=== PATIENT | male | born 1960 | race Caucasian/White ===

== ENCOUNTER 2017-08-30 15:32 | Inpatient (IN) | payer OTHER ==
[2017-08-30 16:27] VITALS: BMI 15.6
--- NOTE | 2017-08-30 17:54 | HP ---
COWS - Scale Resting Pulse: 0= [place] 80 or Below Sweatin=Flushed/Facial Moisture Restless Observation: 3= Extraneous Movement Pupil Size: 0= Normal to Room Light Bone or Joint Aches: 4=Acute Joint/Muscle Pain Runny Nose/ Eye Tearin= Runny Nose/Eyes GI Upset > 30mins: 3= Vomiting/Diarrhea (Vomitted x 3, diarrhea x 2) Tremor Observation: 2= Slight Tremor Visible Yawning Observation: 1= 1-2x During Session Anxiety or Irritability: 2=Irritable/Anxious Goose Flesh Skin: 0=Smooth Skin COWS Score: 19 CIWA Score - CIWA Score Nausea/Vomitin (Vomitting x 3, diarrhea x 2) Muscle Tremors: 4-Moderate,w/Arms Extend Anxiety: 4-Mod. Anxious/Guarded Agitation: 2 Paroxysmal Sweats: 1-Minimal Palms Moist Orientation: 0-Oriented Tacttile Disturbances: 1-Very Mild Itch/Numbness Auditory Disturbances: 0-None Visual Disturbances: 0-None Headache: 0-None Present CIWA-Ar Total Score: 18 Admission ROS S - HPI Chief Complaint: Alcohol and heroin withdrawal Allergies/Adverse Reactions: Allergies Allergy/AdvReac Type Severity Reaction Status Date / Time penicillin G Allergy Severe Swelling Verified 08/30/17 18:26 History of Present Illness: 56 years old male with a long history of alcohol and heroin dependency is admitted for detox. Patient reports previous detox. Reports 2 years of sobriety. Pt states " I want to clean up because I am getting old and for my 4 grandchildren" Exam Limitations: No Limitations - Ebola screening Have you traveled outside of the country in the last 21 days: No Have you had contact with anyone from an Ebola affected area: No Have you been sick,other than usual withdrawal symptoms: No Do you have a fever: No - Review of Systems Constitutional: Chills, Loss of Appetite, Malaise, Night Sweats, Changes in sleep, Weakness EENT: reports: Other (Use glasses for reading) Respiratory: reports: SOB with Exertion Cardiac: reports: No Symptoms Reported GI: reports: Diarrhea, Poor Appetite, Poor Fluid Intake, Vomiting, Abdominal cramping (in the mornings) : reports: No Symptoms Reported Musculoskeletal: reports: Joint Pain, Muscle Pain, Muscle Weakness, Joint Stiffness Integumentary: reports: Dryness, Flushing Neuro: reports: Headache, Tingling, Tremors Endocrine: reports: No Symptoms Reported, Unexplained Weight Loss (H/O AIDS) Hematology: reports: No Symptoms Reported Psychiatric: reports: Orientated x3, Agitated, Depressed (H/O Schizophrenia), other Other Systems: Reviewed and Negative Patient History - Patient Medical History Hx Anemia: No Hx Asthma: Yes Hx Chronic Obstructive Pulmonary Disease (COPD): No Hx Cancer: No Hx Cardiac Disorders: No Hx Congestive Heart Failure: No Hx Hypertension: Yes Hx Hypercholesterolemia: No Hx Pacemaker: No HX Cerebrovascular Accident: No Hx Seizures: No Hx Dementia: No Hx Diabetes: No Hx Gastrointestinal Disorders: No Hx Liver Disease: No Hx Genitourinary Disorders: No Hx Sexually Transmitted Disorders: No Hx Renal Disease (ESRD): No Hx Thyroid Disease: No Hx Human Immunodeficiency Virus (HIV): Yes ( ) Hx Hepatitis C: Yes Hx Depression: Yes Hx Suicide Attempt: Yes (1988) Hx Bipolar Disorder: No Hx Schizophrenia: Yes - Patient Surgical History Past Surgical History: No Hx Neurologic Surgery: No Hx Cataract Extraction: No Hx Cardiac Surgery: No Hx Lung Surgery: No Hx Breast Surgery: No Hx Breast Biopsy: No Hx Abdominal Surgery: No Hx Appendectomy: No Hx Cholecystectomy: No Hx Genitourinary Surgery: No Hx Section: No Hx Orthopedic Surgery: No Anesthesia Reaction: No - PPD History Previous Implant?: No (H/O TB) Date: 07/27/13 PPD to be Administered?: No - Reproductive History Patient is a Female of Child Bearing Age (11 -55 yrs old): No (MALE) - Smoking Cessation Smoking history: Current every day smoker Have you smoked in the past 12 months: Yes Aproximately how many cigarettes per day: 6 Cigars Per Day: 6 Hx Chewing Tobacco Use: No Initiated information on smoking cessation: Yes 'Breaking Loose' booklet given: 08/30/17 - Substance & Tx. History Hx Alcohol Use: Yes (BEER, WHISKY) Hx Substance Use: Yes Substance Use Type: Alcohol, Heroin Hx Substance Use Treatment: Yes ([facility]) Family Disease History - Family Disease History Family Disease History: CA: Father (PROSTATE CA, ), Other: Mother ( ALZHEIMER'S DISEASE, ), Sister (MS, ) Admission Physical Exam BHS - Vital Signs Vital Signs: Vital Signs - 24 hr 08/30/17 16:24 Temperature 97.7 F Pulse Rate 70 Respiratory 18 Rate Blood Pressure 126/62 - Physical General Appearance: Yes: Within Normal Limits, Mild Distress, Cachetic, Anxious HEENTM: Yes: Normal ENT Inspection, Normal Voice, RADHA Respiratory: Yes: Lungs Clear, Normal Breath Sounds, No Respiratory Distress Neck: Yes: Supple Breast: Yes: Breast Exam Deferred Cardiology: Yes: Regular Rhythm, Regular Rate, S1, S2 Abdominal: Yes: Normal Bowel Sounds, Flat Genitourinary: Yes: Within Normal Limits Back: Yes: Other (TATTO TO BACK) Musculoskeletal: Yes: Joint Stiffness, Muscle weakness Extremities: Yes: Tremors, Other (BILATERAL HAND TATOO) Neurological: Yes: Fully Oriented, Alert, Normal Response Integumentary: Yes: Dry, Pale, Track [place] (BILATERAL UPPER AND LOWER EXTREMITIES) Lymphatic: Yes: Within Normal Limits - Diagnostic (1) Acquired immune deficiency syndrome (AIDS) Current Visit: Yes Status: Chronic (2) Asthma Current Visit: Yes Status: Chronic (3) Essential hypertension Current Visit: Yes Status: Chronic (4) Hepatitis C Current Visit: Yes Status: Chronic Qualifiers: Viral hepatitis chronicity: chronic Hepatic coma status: without hepatic coma Qualified Code(s): B18.2 - Chronic viral hepatitis C; B18.2 - Chronic viral hepatitis C; B18.2 - Chronic viral hepatitis C; B18.2 - Chronic viral hepatitis C (5) Nicotine dependence Current Visit: Yes Status: Acute Qualifiers: Nicotine product type: cigarettes Substance use status: uncomplicated Qualified Code(s): F17.210 - Nicotine dependence, cigarettes, uncomplicated; F17.210 - Nicotine dependence, cigarettes, uncomplicated (6) Alcohol dependence with uncomplicated withdrawal Current Visit: Yes Status: Acute (7) Opioid dependence with withdrawal Current Visit: Yes Status: Acute Cleared for Admission S - Detox or Rehab [facility] Level of Care: Medically Managed Detox Regimen/Protocol: Methadone/Librium S Breath Alcohol Content Breath Alcohol Content: 0 Urine Drug Screen - Results Drug Screen Negative: No Urine Drug Screen Results: OPI-Opiates, BZO-Benzodiazepines
[2017-08-30] MEDS ORDERED: MAGNESIUM HYDROX 2400MG/30ML ORAL SUSPENSION 30 ML CUP PO PRN (18:30)
[2017-08-30] MEDS ORDERED: MAG HYDROX/AL HYDROX/SIMETH 30 ML UNIT-DOSE CUP PO PRN (18:30)
[2017-08-30] MEDS ORDERED: diphenhydrAMINE HCL 50 MG CAPSULE PO PRN (18:30)
[2017-08-30] MEDS ORDERED: P-EPHED 60MG/TRIPROLIDI 2.5MG TABLET PO PRN (18:30)
[2017-08-30] MEDS ORDERED: guaiFENesin/D-METHORPHAN HB 10 ML UNIT-DOSE CUPS PO PRN (18:30)
[2017-08-30] MEDS ORDERED: METHADONE HCL 10 MG TABLET (FOR DETOX USE ONLY) PO ONE ×2 (18:30→23:00)
[2017-08-30] MEDS ORDERED: MENTHOL/PHENOL 1 EACH UD MM PRN (18:30)
[2017-08-30] MEDS ORDERED: MAGNESIUM CITRATE 300 ML BOTTLE PO PRN (18:30)
[2017-08-30] MEDS ORDERED: LOPERAMIDE HCL 2 MG CAPSULE PO PRN (18:30)
[2017-08-30] MEDS ORDERED: chlordiazePOXIDE HCL 25 MG CAPSULE PO PRN (18:30)
[2017-08-30] MEDS ORDERED: ACETAMINOPHEN 325 MG TABLET (FP) PO PRN (18:30)
[2017-08-30] MEDS ORDERED: ALBUTEROL SO4 18 GM HFA INHALER IH PRN (18:35)
[2017-08-30] MEDS ORDERED: THIAMINE HCL 100 MG TABLET (FP) PO SCH (22:00)
[2017-08-30] MEDS: chlordiazePOXIDE HCL 25 MG CAPSULE PO SCH (22:06)
[2017-08-30] MEDS: NICOTINE POLACRILEX 2 MG GUM BUC PRN (22:09)
[2017-08-30 23:05] LABS: URINE APPEARANCE SLCLOUDY; URINE BILIRUBIN NEGATIVE (NEGATIVE); URINE BLOOD NEGATIVE (NEGATIVE); URINE COLOR YELLOW; URINE GLUCOSE (UA) NEGATIVE (NEGATIVE); URINE KETONE NEGATIVE (NEGATIVE); URINE NITRITE NEGATIVE (NEGATIVE); URINE PROTEIN NEGATIVE (NEGATIVE); URINE UROBILINOGEN NEGATIVE mg/dL (0.2-1.0)
[2017-08-31] MEDS: chlordiazePOXIDE HCL 25 MG CAPSULE PO SCH ×2 (05:01→10:09)
[2017-08-31] MEDS: NICOTINE POLACRILEX 2 MG GUM BUC PRN (08:52)
[2017-08-31 09:05] VITALS: BP 111/65; PULSE 83; TEMP 95.5
[2017-08-31 09:41] LABS: URINE LEUK ESTERASE Negative (NEGATIVE)
[2017-08-31] MEDS ORDERED: PRENATAL VITAMINS W/ FOLIC ACID TABLET (FP) PO SCH (10:00)
[2017-08-31] MEDS ORDERED: NICOTINE 14 MG/24 HOURS TOPICAL PATCH TD SCH (10:00)
[2017-08-31] MEDS ORDERED: ASPIRIN 81 MG CHEWABLE TABLETS PO SCH (10:00)
[2017-08-31] MEDS ORDERED: METHADONE HCL 10 MG TABLET (FOR DETOX USE ONLY) PO SCH (10:00)
[2017-08-31] MEDS ORDERED: PATIENT'S OWN MEDICATION (NON-FORMULARY) (Efavirenz/Emtricitab/Tenofovir 1 TAB) PO SCH (10:00)
[2017-08-31 10:14] LABS: MCH 35.2 pg (25.7-33.7); MCHC 33.3 g/dl (32.0-35.9); MEAN CELL VOLUME 105.8 fl (80-96); MEAN PLT VOLUME 8.3 fl (7.5-11.1); PLATELET COUNT 178 K/MM3 (134-434); WHITE BLOOD COUNT 4.8 K/mm3 (4.0-10.0)
[2017-08-31 10:44] LABS: ALBUMIN 3.2 g/dl (3.4-5.0); ALK PHOS 85 U/L (45-117); ANION GAP 9 (8-16); BILIRUBIN,TOTAL 0.5 mg/dL (0.2-1.0); CALCIUM 8.3 mg/dL (8.5-10.1); CO2 29 mmol/L (21-32); CREATININE 1.1 mg/dL (0.7-1.3); GLUCOSE,RANDOM 73 mg/dL (74-106); SGOT/AST 17 U/L (15-37); SGPT/ALT 20 U/L (12-78); TOT PROT 7.2 g/dl (6.4-8.2)
--- NOTE | 2017-08-31 11:54 | EKG ---
Test Reason : Blood Pressure : / mmHG Vent. Rate : 062 BPM Atrial Rate : 062 BPM P-R Int : 180 ms QRS Dur : 092 ms QT Int : 432 ms P-R-T Axes : 035 013 052 degrees QTc Int : 438 ms NORMAL SINUS RHYTHM INCOMPLETE RIGHT BUNDLE BRANCH BLOCK BORDERLINE ECG NO PREVIOUS ECGS AVAILABLE Confirmed by DEJA GORDON, KATERINA ([id number]) on 08/31/2017 11:54:35 AM Referred By: Confirmed By:KATERINA SHORT MD
--- NOTE | 2017-08-31 13:23 | DS ---
[facility] Detox Discharge Summary Admission Date: 08/30/17 Discharge Date: 08/31/17 - History Present History: Alcohol Dependence, Opioid Dependence Additional Comments: DESPITE ENCOURAGEMENT FROM STAFF TO REMAIN ON DETOX UNIT FOR DETOX REGIMEN, PATIENT DOES NOT WISH TO STAY TO COMPLETE DETOX REGIMEN. PATIENT ADVISED TO GO IMMEDIATELY TO NEAREST ER SHOULD ANY INTOLERABLE DETOX SYMPTOMS DEVELOP AT ANY TIME. PATIENT LEFT DETOX UNIT IN STABLE MEDICAL CONDITION. Pertinent Past History: Asthma, Nicotine Dependence, HTN, Hep C, HIV / AIDS, Depression, Schizophrenia. - Physical Exam Results Vital Signs: Vital Signs Temperature 95.5 F L 08/31/17 09:05 Pulse Rate 83 08/31/17 09:05 Respiratory Rate 18 08/31/17 09:05 Blood Pressure 111/65 08/31/17 09:05 O2 Sat by Pulse Oximetry (%) Pertinent Admission Physical Exam Findings: WITHDRAWAL SYMPTOMS. Laboratory Tests 08/30/17 08/31/17 08/31/17 22:00 07:00 07:00 WBC 4.8 D RBC 3.32 L Hgb 11.7 Hct 35.2 L MCV 105.8 H MCH 35.2 H MCHC 33.3 RDW 14.0 Plt Count 178 MPV 8.3 Sodium 139 Potassium 3.7 Chloride 101 Carbon Dioxide 29 D Anion Gap 9 BUN 20 H D Creatinine 1.1 Creat Clearance w eGFR > 60 Random Glucose 73 L D Calcium 8.3 L Total Bilirubin 0.5 D AST 17 D ALT 20 D Alkaline Phosphatase 85 D Total Protein 7.2 Albumin 3.2 L Urine Color Yellow Urine Appearance Slcloudy Urine pH 6.0 Ur Specific [place] 1.020 Urine Protein Negative Urine Glucose (UA) Negative Urine Ketones Negative Urine Blood Negative Urine Nitrite Negative Urine Bilirubin Negative Urine Urobilinogen Negative Ur Leukocyte Esterase Negative RPR Titer 08/31/17 07:00 WBC RBC Hgb Hct MCV MCH MCHC RDW Plt Count MPV Sodium Potassium Chloride Carbon Dioxide Anion Gap BUN Creatinine Creat Clearance w eGFR Random Glucose Calcium Total Bilirubin AST ALT Alkaline Phosphatase Total Protein Albumin Urine Color Urine Appearance Urine pH Ur Specific [place] Urine Protein Urine Glucose (UA) Urine Ketones Urine Blood Urine Nitrite Urine Bilirubin Urine Urobilinogen Ur Leukocyte Esterase RPR Titer Nonreactive LABS NOTED. - Treatment Hospital Course: Detoxed Safely - Medication Discharge Medications: Ambulatory Orders Albuterol Sulfate Inhaler - [Ventolin Hfa *Inhaler*] 2 inh IH PRN PRN 09/11/13 Aspirin 81 mg PO DAILY 07/25/13 Quetiapine Fumarate [Seroquel -] 50 mg PO HS #30 tablet 07/26/13 Efavirenz/Emtricitab/Tenofovir [Atripla Tablet -] 1 tab PO DAILY 10/02/13 Quetiapine Fumarate [Seroquel -] 50 mg PO HS #30 tablet 05/20/16 - Diagnosis (1) Alcohol dependence with uncomplicated withdrawal Status: Acute (2) Nicotine dependence Status: Chronic Qualifiers: Nicotine product type: cigarettes Substance use status: uncomplicated Qualified Code(s): F17.210 - Nicotine dependence, cigarettes, uncomplicated; F17.210 - Nicotine dependence, cigarettes, uncomplicated (3) Opioid dependence with withdrawal Status: Acute (4) Acquired immune deficiency syndrome (AIDS) Status: Chronic (5) Asthma Status: Chronic (6) Essential hypertension Status: Chronic (7) Hepatitis C Status: Chronic Qualifiers: Viral hepatitis chronicity: chronic Hepatic coma status: without hepatic coma Qualified Code(s): B18.2 - Chronic viral hepatitis C; B18.2 - Chronic viral hepatitis C; B18.2 - Chronic viral hepatitis C; B18.2 - Chronic viral hepatitis C - AMA Did Patient Leave Against Medical Advice: Yes (PATIENT DID NOT WISH TO STAY TO COMPLETE DETOX REGIMEN.)
[2017-08-31] MEDS ORDERED: chlordiazePOXIDE HCL 25 MG CAPSULE PO SCH (23:00)
[2017-09-01] MEDS ORDERED: METHADONE HCL 5 MG TABLET (FOR DETOX USE ONLY) PO SCH (10:00)
[2017-09-01] MEDS ORDERED: chlordiazePOXIDE 5 MG CAPSULE PO SCH (23:00)
[2017-09-02] MEDS ORDERED: chlordiazePOXIDE HCL 10 MG CAPSULE PO SCH (23:00)
[2017-09-03] MEDS ORDERED: METHADONE HCL 10 MG TABLET (FOR DETOX USE ONLY) PO SCH (10:00)
[2017-09-04] MEDS ORDERED: METHADONE HCL 5 MG TABLET (FOR DETOX USE ONLY) PO SCH (06:00)
== END 2017-08-31 11:08 | disposition left against medical advice (07) | DRG 894 ==
LOC: YASAS 15:32 → Y3N 19:27
PROVIDERS: ADMIT Internal Medicine; ATTEND Internal Medicine
PROC: HZ2ZZZZ Detoxification Services for Substance Abuse Treatment (ICD-10-PCS; principal; 2017-08-30)
DX: F11.23 Opioid dependence with withdrawal (principal); F10.230 Alcohol dependence with withdrawal, uncomplicated; F17.210 Nicotine dependence, cigarettes, uncomplicated; F20.9 Schizophrenia, unspecified; F32.9 Major depressive disorder, single episode, unspecified; I10 Essential (primary) hypertension; B18.2 Chronic viral hepatitis C; J45.909 Unspecified asthma, uncomplicated; Z91.5 Personal history of self-harm
CPT/HCPCS: 36415; 80053; 81003; 85027; 86593; 93005; 93010

== ENCOUNTER 2017-10-26 11:44 | Inpatient (IN) | payer OTHER ==
[2017-10-26 13:21] VITALS: BMI 18.6
--- NOTE | 2017-10-26 16:44 | HP ---
COWS - Scale Resting Pulse: 1= [place] 81-100 Sweatin= Chills/Flushing Restless Observation: 3= Extraneous Movement Pupil Size: 0= Normal to Room Light Bone or Joint Aches: 2= Severe Diffuse Aches Runny Nose/ Eye Tearin= Runny Nose/Eyes GI Upset > 30mins: 3= Vomiting/Diarrhea Tremor Observation: 2= Slight Tremor Visible Yawning Observation: 0= None Anxiety or Irritability: 2=Irritable/Anxious Goose Flesh Skin: 0=Smooth Skin COWS Score: 16 CIWA Score - CIWA Score Nausea/Vomitin Muscle Tremors: 4-Moderate,w/Arms Extend Anxiety: 4-Mod. Anxious/Guarded Agitation: 4-Moderately Restless Paroxysmal Sweats: 1-Minimal Palms Moist Orientation: 0-Oriented Tacttile Disturbances: 1-Very Mild Itch/Numbness Auditory Disturbances: 0-None Visual Disturbances: 0-None Headache: 1-Very Mild CIWA-Ar Total Score: 17 Admission ROS S - HPI Chief Complaint: withdrawal sx Allergies/Adverse Reactions: Allergies Allergy/AdvReac Type Severity Reaction Status Date / Time penicillin G Allergy Severe Swelling Verified 10/26/17 15:09 History of Present Illness: 57 years old male with long history of alcohol heroin nicotine dependence has hiv asthma copd dry skin weight loss positive ppd has depression and anxiety is admitted to detox Exam Limitations: No Limitations - Ebola screening Have you traveled outside of the country in the last 21 days: No Have you had contact with anyone from an Ebola affected area: No Have you been sick,other than usual withdrawal symptoms: No Do you have a fever: No - Review of Systems Constitutional: Loss of Appetite, Changes in sleep, Unintentional Wgt. Loss, Unexplained wgt Loss EENT: reports: Dental Problems (upper and lower) Respiratory: reports: SOB with Exertion Cardiac: reports: No Symptoms Reported GI: reports: Nausea, Poor Appetite, Poor Fluid Intake, Vomiting, Abdominal cramping : reports: No Symptoms Reported Musculoskeletal: reports: Back Pain, Joint Pain, Muscle Pain, Muscle Weakness, Neck Pain Integumentary: reports: Change in Color (multiple skin abrasion from dryness and itching), Dryness Neuro: reports: Tremors Endocrine: reports: No Symptoms Reported Hematology: reports: No Symptoms Reported Psychiatric: reports: Judgement Intact, Orientated x3, Anxious, Depressed Other Systems: Reviewed and Negative Patient History - Patient Medical History Hx Anemia: No Hx Asthma: Yes (Pt is on MDI) Hx Chronic Obstructive Pulmonary Disease (COPD): Yes Hx Cancer: No Hx Cardiac Disorders: No Hx Congestive Heart Failure: No Hx Hypertension: Yes (on meds but does not remember name.) Hx Hypercholesterolemia: No Hx Pacemaker: No HX Cerebrovascular Accident: No Hx Seizures: No Hx Dementia: No Hx Diabetes: No Hx Gastrointestinal Disorders: No Hx Liver Disease: No Hx Genitourinary Disorders: No Hx Sexually Transmitted Disorders: No Hx Renal Disease (ESRD): No Hx Thyroid Disease: No Hx Human Immunodeficiency Virus (HIV): Yes ( ) Hx Hepatitis C: Yes Hx Depression: Yes Hx Suicide Attempt: Yes (Pt states he attempted to hang himself 20 yrs ago.) Hx Bipolar Disorder: No Hx Schizophrenia: No - Patient Surgical History Past Surgical History: No Hx Neurologic Surgery: No Hx Cataract Extraction: No Hx Cardiac Surgery: No Hx Lung Surgery: No Hx Breast Surgery: No Hx Breast Biopsy: No Hx Abdominal Surgery: No Hx Appendectomy: No Hx Cholecystectomy: No Hx Genitourinary Surgery: No Hx Orthopedic Surgery: No - PPD History Previous Implant?: Yes Documented Results: Positive w/o proof Implanted On Prior [facility] Admission?: No Date: 07/27/13 Results: CXR NEEDED PPD to be Administered?: No - Smoking Cessation Smoking history: Current every day smoker Have you smoked in the past 12 months: Yes Aproximately how many cigarettes per day: 6 Cigars Per Day: 0 Hx Chewing Tobacco Use: No Initiated information on smoking cessation: Yes 'Breaking Loose' booklet given: 10/26/17 - Substance & Tx. History Hx Alcohol Use: Yes Hx Substance Use: Yes Substance Use Type: Alcohol, Heroin Hx Substance Use Treatment: Yes (08/2017 [facility]) - Substances Abused Heroin Route: Injection Frequency: Daily Amount used: 3 BAGS Age of first use: 17 Date of Last Use: 10/26/17 Alcohol Route: Oral Frequency: Daily Amount used: 9 BEERS x 24 oz Age of first use: 12 Date of Last Use: 10/26/17 Family Disease History - Family Disease History Family Disease History: [place]: Father (PROSTATE CA, ), Other: Mother ( ALZHEIMER'S DISEASE, ), Sister (MS, ) Admission Physical Exam BHS - Vital Signs Vital Signs: Vital Signs - 24 hr 10/26/17 13:16 Temperature 96.0 F L Pulse Rate 88 Respiratory 16 Rate Blood Pressure 116/74 - Physical General Appearance: Yes: Appropriately Dressed, Moderate Distress, Alcohol on Breath, Thin, Tremorous, Irritable, Sweating, Anxious HEENTM: Yes: Hearing grossly Normal, Normal ENT Inspection, Normocephalic, Normal Voice Respiratory: Yes: Chest Non-Tender, No Respiratory Distress, No Accessory Muscle Use, Wheezing, Hyperresonant Neck: Yes: Supple, Trachea in good position Breast: Yes: Breasts Symetrical Cardiology: Yes: Regular Rhythm, Regular Rate, S1, S2 Abdominal: Yes: Non Tender, Flat, Increased Bowel Sounds Genitourinary: Yes: Within Normal Limits Back: Yes: Normal Inspection Musculoskeletal: Yes: Gait Steady (cane), Back pain, Muscle Pain (feet pain) Extremities: Yes: Non-Tender, Tremors, Other (arms and legs iv [place]) Neurological: Yes: Fully Oriented, Alert, Motor Strength 5/5 (cane), Normal Response, Depressed Affect Integumentary: Yes: Dry, Warm, Track [place] Lymphatic: Yes: Within Normal Limits - Diagnostic (1) Dry skin dermatitis Current Visit: Yes Status: Chronic (2) Positive PPD, treated Current Visit: Yes Status: Resolved (3) Valgus deformity of great toes, bilateral Current Visit: Yes Status: Chronic (4) Alcohol dependence with uncomplicated withdrawal Current Visit: Yes Status: Acute (5) Opioid dependence with withdrawal Current Visit: Yes Status: Acute (6) Acquired immune deficiency syndrome (AIDS) Current Visit: Yes Status: Chronic (7) Asthma Current Visit: Yes Status: Chronic (8) Hepatitis C Current Visit: Yes Status: Resolved Qualifiers: Viral hepatitis chronicity: chronic Hepatic coma status: without hepatic coma Qualified Code(s): B18.2 - Chronic viral hepatitis C Comment: treated (9) Nicotine dependence Current Visit: Yes Status: Acute Qualifiers: Nicotine product type: cigarettes Substance use status: in withdrawal Qualified Code(s): F17.213 - Nicotine dependence, cigarettes, with withdrawal Cleared for Admission [facility] - Detox or Rehab S Level of Care: Medically Managed Detox Regimen/Protocol: Methadone/Librium S Breath Alcohol Content Breath Alcohol Content: 0 Urine Drug Screen - Results Drug Screen Negative: No Urine Drug Screen Results: OPI-Opiates, BZO-Benzodiazepines, OXY-Oxycodone
[2017-10-26] MEDS ORDERED: chlordiazePOXIDE HCL 25 MG CAPSULE PO PRN (16:48)
[2017-10-26] MEDS ORDERED: ACETAMINOPHEN 325 MG TABLET (FP) PO PRN (16:48)
[2017-10-26] MEDS ORDERED: MAGNESIUM HYDROX 2400MG/30ML ORAL SUSPENSION 30 ML CUP PO PRN (16:48)
[2017-10-26] MEDS ORDERED: P-EPHED 60MG/TRIPROLIDI 2.5MG TABLET PO PRN (16:48)
[2017-10-26] MEDS ORDERED: MAGNESIUM CITRATE 300 ML BOTTLE PO PRN (16:48)
[2017-10-26] MEDS ORDERED: MENTHOL/PHENOL 1 EACH UD MM PRN (16:48)
[2017-10-26] MEDS ORDERED: MAG HYDROX/AL HYDROX/SIMETH 30 ML UNIT-DOSE CUP PO PRN (16:48)
[2017-10-26] MEDS ORDERED: LOPERAMIDE HCL 2 MG CAPSULE PO PRN (16:48)
[2017-10-26] MEDS ORDERED: guaiFENesin/D-METHORPHAN HB 10 ML UNIT-DOSE CUPS PO PRN (16:48)
[2017-10-26] MEDS ORDERED: ALBUTEROL SO4 2.5/IPRATROPIUM 0.5 INH SOL 3 ML VIAL.NEB. NEB PRN (16:50)
[2017-10-26] MEDS ORDERED: ALBUTEROL SO4 18 GM HFA INHALER IH PRN (16:50)
[2017-10-26] MEDS ORDERED: COLLOIDAL OATMEAL 1 BAR EACH TP PRN (16:51)
[2017-10-26] MEDS ORDERED: METHADONE HCL 10 MG TABLET (FOR DETOX USE ONLY) PO ONE ×2 (18:00→23:00)
[2017-10-26] MEDS: NICOTINE POLACRILEX 2 MG GUM BC PRN (18:30)
[2017-10-26] MEDS: THIAMINE HCL 100 MG TABLET (FP) PO SCH (22:56)
[2017-10-26] MEDS: chlordiazePOXIDE HCL 25 MG CAPSULE PO SCH (22:56)
[2017-10-26] MEDS: MINERAL OIL/PETROLAT/WATER TOPICAL CREAM 113 GM JAR TP SCH (22:57)
[2017-10-26 23:13] LABS: PH,URINE 6.5 (5.0-8.0); URINE APPEARANCE CLEAR; URINE BILIRUBIN NEGATIVE (NEGATIVE); URINE BLOOD NEGATIVE (NEGATIVE); URINE COLOR LT. YELLOW; URINE GLUCOSE (UA) NEGATIVE (NEGATIVE); URINE KETONE NEGATIVE (NEGATIVE); URINE LEUK ESTERASE NEGATIVE (NEGATIVE); URINE NITRITE NEGATIVE (NEGATIVE); URINE PROTEIN NEGATIVE (NEGATIVE); URINE UROBILINOGEN 0.2 mg/dL (0.2-1.0)
[2017-10-27] MEDS: chlordiazePOXIDE HCL 25 MG CAPSULE PO SCH ×4 (05:26→22:42)
--- NOTE | 2017-10-27 08:47 | CONSULT ---
[facility] Psychiatric Consult - Data Date of interview: 10/27/17 Admission source: [facility] Identifying data: This is 57 years old male with psychiatric hospitalization history intoxicated with: Alcohol, Opioids, Nicotine Substance Abuse History: Ambien 10mg po qhs Medical History: PPD+ history, AIDS, Asthma, HepC+ Psychiatric History: Patient reporets history of depression, reports unclear psychiatrioc hospitalization on about 20 years ago after trying to hang himself , reports history of suicidal attempts by OD, reports being sober doing that, denies suicidal history since 3 years ago. Physical/Sexual Abuse/Trauma History: Denies Additional Comment: Observation. Detox Unit Care Protocol Mental Status Exam - Mental Status Exam Alert and Oriented to: Person Cognitive Function: Fair Patient Appearance: Unkempt Mood: Sad Affect: Flat Patient Behavior: Sedated Speech Pattern: Delayed Voice Loudness: Mildly Soft/Quiet Thought Process: Circumstantial Thought Disorder: Being Controlled Hallucinations: Denies Suicidal Ideation: Denies Homicidal Ideation: Denies Insight/Judgement: Fair Sleep: Difficulty falling asleep Appetite: Weight loss Muscle strength/Tone: Mild Hypotonicity Gait/Station: Shuffling Additional Comments: Observation. Detox Unit Care Protocol Psychiatric Findings - Problem List ([place] 1, 2,3) (1) Alcohol dependence with uncomplicated withdrawal Current Visit: Yes Status: Acute (2) Nicotine dependence Current Visit: Yes Status: Acute Qualifiers: Nicotine product type: cigarettes Substance use status: in withdrawal Qualified Code(s): F17.213 - Nicotine dependence, cigarettes, with withdrawal (3) Opioid dependence with withdrawal Current Visit: Yes Status: Acute (4) Alcohol dependence Current Visit: No Status: Acute (5) Drug-induced mood disorder Current Visit: No Status: Acute (6) Opioid dependence Current Visit: No Status: Acute (7) Decreased weight Current Visit: No Status: Chronic - Initial Treatment Plan Initial Treatment Plan: Observation. Detox Unit Care Protocol
[2017-10-27] MEDS ORDERED: METHADONE HCL 10 MG TABLET (FOR DETOX USE ONLY) PO SCH (10:00)
[2017-10-27 10:02] LABS: MCH 34.4 pg (25.7-33.7); MCHC 32.5 g/dl (32.0-35.9); MEAN CELL VOLUME 105.6 fl (80-96); MEAN PLT VOLUME 8.5 fl (7.5-11.1); PLATELET COUNT 217 K/MM3 (134-434); RDW 12.8 % (11.9-15.9); WHITE BLOOD COUNT 3.8 K/mm3 (4.0-10.0)
--- NOTE | 2017-10-27 10:02 | PN ---
S CIWA - CIWA Score Nausea/Vomitin Muscle Tremors: 3 Anxiety: 3 Agitation: 3 Paroxysmal Sweats: 3 Orientation: 0-Oriented Tacttile Disturbances: 0-None Auditory Disturbances: 0-None Visual Disturbances: 0-None Headache: 0-None Present CIWA-Ar Total Score: 15 BHS COWS - Scale Resting Pulse: 1= [place] 81-100 Sweatin= Chills/Flushing Restless Observation: 1= Difficult to Sit Still Pupil Size: 1= Pupils >than Normal Bone or Joint Aches: 1= Mild Discomfort Runny Nose/ Eye Tearin= Nasal Congestion GI Upset > 30mins: 2= Nausea/Diarrhea Tremor Observation of Outstretched Hands: 2= Slight Tremor Visible Yawning Observation: 1= 1-2x During Session Anxiety or Irritability: 2=Irritable/Anxious Goose Flesh Skin: 3=Piloerection COWS Score: 16 S Progress Note (SOAP) Subjective: nasuea, sweats, interrupted sleeep, anxiety, tremors Objective: 10/27/17 10:01 Vital Signs - 24 hr 10/26/17 10/26/17 10/27/17 13:16 22:11 00:30 Temperature 96.0 F L 97.7 F Pulse Rate 88 88 Respiratory 16 18 18 Rate Blood Pressure 116/74 120/84 10/27/17 10/27/17 03:30 06:27 Temperature 97.0 F L Pulse Rate 73 Respiratory 18 18 Rate Blood Pressure 120/75 Laboratory Tests 10/26/17 21:00 Urine Color Lt. yellow Urine Appearance Clear Urine pH 6.5 Ur Specific [place] <= 1.005 Urine Protein Negative Urine Glucose (UA) Negative Urine Ketones Negative Urine Blood Negative Urine Nitrite Negative Urine Bilirubin Negative Urine Urobilinogen 0.2 labs still bending Assessment: 10/27/17 10:01 withdrawawl sx - cont detox, fluids, encourage ambualtion, h/o PPD+ cxr ordered.
[2017-10-27 10:13] LABS: ALBUMIN 3.1 g/dl (3.4-5.0); ANION GAP 6 (8-16); BILIRUBIN,TOTAL 0.6 mg/dL (0.2-1.0); CALCIUM 8.3 mg/dL (8.5-10.1); CO2 29 mmol/L (21-32); GLUCOSE,RANDOM 81 mg/dL (74-106); SGOT/AST 19 U/L (15-37); SGPT/ALT 27 U/L (12-78); TOT PROT 6.8 g/dl (6.4-8.2)
[2017-10-27 10:14] LABS: ALK PHOS 84 U/L (45-117)
[2017-10-27] MEDS: ASPIRIN 81 MG CHEWABLE TABLETS PO SCH (10:48)
[2017-10-27] MEDS: PRENATAL VITAMINS W/ FOLIC ACID TABLET (FP) PO SCH (10:48)
[2017-10-27] MEDS: NICOTINE 14 MG/24 HOURS TOPICAL PATCH TD SCH (10:49)
[2017-10-27] MEDS: EMTRICITABINE/TENOFOV ALAFENAM (DESCOVY) TABLET PO SCH (10:49)
[2017-10-27] MEDS: PATIENT'S OWN MEDICATION (NON-FORMULARY) (Darunavir/Cobicistat [Prezcobix 800 Mg-150 Mg Ta PO SCH (10:49)
[2017-10-27 11:32] LABS: URINE LEUK ESTERASE Negative (NEGATIVE)
--- NOTE | 2017-10-27 11:40 | EKG ---
Test Reason : Blood Pressure : / mmHG Vent. Rate : 082 BPM Atrial Rate : 082 BPM P-R Int : 172 ms QRS Dur : 086 ms QT Int : 394 ms P-R-T Axes : 073 -07 049 degrees QTc Int : 460 ms NORMAL SINUS RHYTHM NORMAL ECG WHEN COMPARED WITH ECG OF 30-AUG-2017 20:25, NO SIGNIFICANT CHANGE WAS FOUND Confirmed by JENNIFER NOVAK MD ([id number]) on 10/27/2017 11:40:33 AM Referred By: Confirmed By:JENNIFER NOVAK MD
[2017-10-27] MEDS: NICOTINE POLACRILEX 2 MG GUM BC PRN ×2 (17:20→22:42)
[2017-10-27] MEDS: THIAMINE HCL 100 MG TABLET (FP) PO SCH (22:42)
[2017-10-27] MEDS: MINERAL OIL/PETROLAT/WATER TOPICAL CREAM 113 GM JAR TP SCH (22:42)
[2017-10-28] MEDS: chlordiazePOXIDE HCL 25 MG CAPSULE PO SCH ×3 (05:26→17:38)
[2017-10-28] MEDS: EMTRICITABINE/TENOFOV ALAFENAM (DESCOVY) TABLET PO SCH (10:28)
[2017-10-28] MEDS: PATIENT'S OWN MEDICATION (NON-FORMULARY) (Darunavir/Cobicistat [Prezcobix 800 Mg-150 Mg Ta PO SCH (10:28)
[2017-10-28] MEDS: PRENATAL VITAMINS W/ FOLIC ACID TABLET (FP) PO SCH (10:29)
[2017-10-28] MEDS: METHADONE HCL 5 MG TABLET (FOR DETOX USE ONLY) PO SCH (10:30)
[2017-10-28] MEDS: NICOTINE 14 MG/24 HOURS TOPICAL PATCH TD SCH (10:30)
[2017-10-28] MEDS: ASPIRIN 81 MG CHEWABLE TABLETS PO SCH (10:30)
--- NOTE | 2017-10-28 11:19 | PN ---
S CIWA - CIWA Score Nausea/Vomitin Muscle Tremors: 3 Anxiety: 3 Agitation: 2 Paroxysmal Sweats: 1-Minimal Palms Moist Orientation: 0-Oriented Tacttile Disturbances: 1-Very Mild Itch/Numbness Auditory Disturbances: 1-Very Mild Visual Disturbances: 0-None Headache: 2-Mild CIWA-Ar Total Score: 16 BHS COWS - Scale Resting Pulse: 1= PA 81-100 Sweatin= Chills/Flushing Restless Observation: 3= Extraneous Movement Pupil Size: 1= Pupils >than Normal Bone or Joint Aches: 2= Severe Diffuse Aches Runny Nose/ Eye Tearin= Runny Nose/Eyes GI Upset > 30mins: 2= Nausea/Diarrhea Tremor Observation of Outstretched Hands: 2= Slight Tremor Visible Yawning Observation: 1= 1-2x During Session Anxiety or Irritability: 2=Irritable/Anxious Goose Flesh Skin: 0=Smooth Skin COWS Score: 17 S Progress Note (SOAP) Subjective: alert,irritable,anxious,interrupted sleep,pain in the body and back,tremor Objective: 10/28/17 11:17 Vital Signs Temperature 97.7 F 10/28/17 11:15 Pulse Rate 86 10/28/17 11:15 Respiratory Rate 16 10/28/17 11:15 Blood Pressure 81/61 10/28/17 11:15 O2 Sat by Pulse Oximetry (%) Laboratory Last Values WBC 3.8 K/mm3 (4.0-10.0) L 10/27/17 07:00 RBC 3.61 M/mm3 (4.00-5.60) L 10/27/17 07:00 Hgb 12.4 GM/dL (11.7-16.9) 10/27/17 07:00 Hct 38.1 % (35.4-49) 10/27/17 07:00 MCV 105.6 fl (80-96) H 10/27/17 07:00 MCH 34.4 pg (25.7-33.7) H 10/27/17 07:00 MCHC 32.5 g/dl (32.0-35.9) 10/27/17 07:00 RDW 12.8 % (11.9-15.9) 10/27/17 07:00 Plt Count 217 K/MM3 (134-434) D 10/27/17 07:00 MPV 8.5 fl (7.5-11.1) 10/27/17 07:00 Sodium 139 mmol/L (136-145) 10/27/17 07:00 Potassium 3.8 mmol/L (3.5-5.1) 10/27/17 07:00 Chloride 104 mmol/L (98-107) 10/27/17 07:00 Carbon Dioxide 29 mmol/L (21-32) 10/27/17 07:00 Anion Gap 6 (8-16) L 10/27/17 07:00 BUN 25 mg/dL (7-18) H D 10/27/17 07:00 Creatinine 1.0 mg/dL (0.7-1.3) 10/27/17 07:00 Creat Clearance w eGFR > 60 (>60) 10/27/17 07:00 Random Glucose 81 mg/dL (74-106) 10/27/17 07:00 Calcium 8.3 mg/dL (8.5-10.1) L 10/27/17 07:00 Total Bilirubin 0.6 mg/dL (0.2-1.0) 10/27/17 07:00 AST 19 U/L (15-37) 10/27/17 07:00 ALT 27 U/L (12-78) D 10/27/17 07:00 Alkaline Phosphatase 84 U/L (45-117) 10/27/17 07:00 Total Protein 6.8 g/dl (6.4-8.2) 10/27/17 07:00 Albumin 3.1 g/dl (3.4-5.0) L 10/27/17 07:00 Urine Color Lt. yellow 10/26/17 21:00 Urine Appearance Clear 10/26/17 21:00 Urine pH 6.5 (5.0-8.0) 10/26/17 21:00 Ur Specific [place] <= 1.005 (1.001-1.035) 10/26/17 21:00 Urine Protein Negative (NEGATIVE) 10/26/17 21:00 Urine Glucose (UA) Negative (NEGATIVE) 10/26/17 21:00 Urine Ketones Negative (NEGATIVE) 10/26/17 21:00 Urine Blood Negative (NEGATIVE) 10/26/17 21:00 Urine Nitrite Negative (NEGATIVE) 10/26/17 21:00 Urine Bilirubin Negative (NEGATIVE) 10/26/17 21:00 Urine Urobilinogen 0.2 mg/dL (0.2-1.0) 10/26/17 21:00 Ur Leukocyte Esterase Negative (NEGATIVE) 10/26/17 21:00 RPR Titer Nonreactive (NONREACTIVE) 10/27/17 07:00 Assessment: 10/28/17 11:17 withdrawal symptom Plan: continue detox,encourage oral fluid
[2017-10-28] MEDS: NICOTINE POLACRILEX 2 MG GUM BC PRN (17:38)
[2017-10-28] MEDS: MINERAL OIL/PETROLAT/WATER TOPICAL CREAM 113 GM JAR TP SCH (22:30)
[2017-10-28] MEDS: THIAMINE HCL 100 MG TABLET (FP) PO SCH (22:30)
[2017-10-28] MEDS: chlordiazePOXIDE 5 MG CAPSULE PO SCH (22:30)
[2017-10-29] MEDS: chlordiazePOXIDE 5 MG CAPSULE PO SCH ×3 (05:53→18:37)
[2017-10-29] MEDS: NICOTINE POLACRILEX 2 MG GUM BC PRN (09:01)
[2017-10-29] MEDS: ASPIRIN 81 MG CHEWABLE TABLETS PO SCH (10:33)
[2017-10-29] MEDS: EMTRICITABINE/TENOFOV ALAFENAM (DESCOVY) TABLET PO SCH (10:34)
[2017-10-29] MEDS: PATIENT'S OWN MEDICATION (NON-FORMULARY) (Darunavir/Cobicistat [Prezcobix 800 Mg-150 Mg Ta PO SCH (10:34)
[2017-10-29] MEDS: METHADONE HCL 5 MG TABLET (FOR DETOX USE ONLY) PO SCH (10:34)
[2017-10-29] MEDS: NICOTINE 14 MG/24 HOURS TOPICAL PATCH TD SCH (10:35)
[2017-10-29] MEDS: PRENATAL VITAMINS W/ FOLIC ACID TABLET (FP) PO SCH (10:40)
--- NOTE | 2017-10-29 12:25 | PN ---
BHS Progress Note (SOAP) Subjective: alert,irritable,anxious,interrupted sleep,pain in the body and joint ,back Objective: 10/29/17 12:24 Vital Signs Temperature 96.6 F L 10/29/17 10:00 Pulse Rate 97 H 10/29/17 10:00 Respiratory Rate 16 10/29/17 10:00 Blood Pressure 113/78 10/29/17 10:00 O2 Sat by Pulse Oximetry (%) Assessment: 10/29/17 12:25 withdrawal symptom Plan: continue detox
[2017-10-29] MEDS: chlordiazePOXIDE HCL 10 MG CAPSULE PO SCH (22:26)
[2017-10-29] MEDS: THIAMINE HCL 100 MG TABLET (FP) PO SCH (22:26)
[2017-10-29] MEDS: MINERAL OIL/PETROLAT/WATER TOPICAL CREAM 113 GM JAR TP SCH (22:26)
[2017-10-30] MEDS: chlordiazePOXIDE HCL 10 MG CAPSULE PO SCH ×3 (05:30→17:54)
[2017-10-30] MEDS: NICOTINE POLACRILEX 2 MG GUM BC PRN ×2 (09:10→13:43)
--- NOTE | 2017-10-30 09:44 | PN ---
BHS Progress Note (SOAP) Subjective: alert mild anxiousness ambulating on [address] good appetite Objective: 10/30/17 09:43 Vital Signs Temperature 97.7 F 10/30/17 06:00 Pulse Rate 76 10/30/17 06:00 Respiratory Rate 18 10/30/17 06:00 Blood Pressure 124/80 10/30/17 06:00 O2 Sat by Pulse Oximetry (%) Laboratory Last Values WBC 3.8 K/mm3 (4.0-10.0) L 10/27/17 07:00 RBC 3.61 M/mm3 (4.00-5.60) L 10/27/17 07:00 Hgb 12.4 GM/dL (11.7-16.9) 10/27/17 07:00 Hct 38.1 % (35.4-49) 10/27/17 07:00 MCV 105.6 fl (80-96) H 10/27/17 07:00 MCH 34.4 pg (25.7-33.7) H 10/27/17 07:00 MCHC 32.5 g/dl (32.0-35.9) 10/27/17 07:00 RDW 12.8 % (11.9-15.9) 10/27/17 07:00 Plt Count 217 K/MM3 (134-434) D 10/27/17 07:00 MPV 8.5 fl (7.5-11.1) 10/27/17 07:00 Sodium 139 mmol/L (136-145) 10/27/17 07:00 Potassium 3.8 mmol/L (3.5-5.1) 10/27/17 07:00 Chloride 104 mmol/L (98-107) 10/27/17 07:00 Carbon Dioxide 29 mmol/L (21-32) 10/27/17 07:00 Anion Gap 6 (8-16) L 10/27/17 07:00 BUN 25 mg/dL (7-18) H D 10/27/17 07:00 Creatinine 1.0 mg/dL (0.7-1.3) 10/27/17 07:00 Creat Clearance w eGFR > 60 (>60) 10/27/17 07:00 Random Glucose 81 mg/dL (74-106) 10/27/17 07:00 Calcium 8.3 mg/dL (8.5-10.1) L 10/27/17 07:00 Total Bilirubin 0.6 mg/dL (0.2-1.0) 10/27/17 07:00 AST 19 U/L (15-37) 10/27/17 07:00 ALT 27 U/L (12-78) D 10/27/17 07:00 Alkaline Phosphatase 84 U/L (45-117) 10/27/17 07:00 Total Protein 6.8 g/dl (6.4-8.2) 10/27/17 07:00 Albumin 3.1 g/dl (3.4-5.0) L 10/27/17 07:00 Urine Color Lt. yellow 10/26/17 21:00 Urine Appearance Clear 10/26/17 21:00 Urine pH 6.5 (5.0-8.0) 10/26/17 21:00 Ur Specific [place] <= 1.005 (1.001-1.035) 10/26/17 21:00 Urine Protein Negative (NEGATIVE) 10/26/17 21:00 Urine Glucose (UA) Negative (NEGATIVE) 10/26/17 21:00 Urine Ketones Negative (NEGATIVE) 10/26/17 21:00 Urine Blood Negative (NEGATIVE) 10/26/17 21:00 Urine Nitrite Negative (NEGATIVE) 10/26/17 21:00 Urine Bilirubin Negative (NEGATIVE) 10/26/17 21:00 Urine Urobilinogen 0.2 mg/dL (0.2-1.0) 10/26/17 21:00 Ur Leukocyte Esterase Negative (NEGATIVE) 10/26/17 21:00 RPR Titer Nonreactive (NONREACTIVE) 10/27/17 07:00 lab noted Assessment: 10/30/17 09:43 mild withdrawal sx Plan: observation with detox regimen
[2017-10-30] MEDS ORDERED: METHADONE HCL 10 MG TABLET (FOR DETOX USE ONLY) PO SCH (10:00)
[2017-10-30] MEDS: ASPIRIN 81 MG CHEWABLE TABLETS PO SCH (10:54)
[2017-10-30] MEDS: PRENATAL VITAMINS W/ FOLIC ACID TABLET (FP) PO SCH (10:54)
[2017-10-30] MEDS: EMTRICITABINE/TENOFOV ALAFENAM (DESCOVY) TABLET PO SCH (10:54)
[2017-10-30] MEDS: NICOTINE 14 MG/24 HOURS TOPICAL PATCH TD SCH (10:55)
[2017-10-30] MEDS: PATIENT'S OWN MEDICATION (NON-FORMULARY) (Darunavir/Cobicistat [Prezcobix 800 Mg-150 Mg Ta PO SCH (10:55)
[2017-10-30] MEDS: THIAMINE HCL 100 MG TABLET (FP) PO SCH (22:32)
[2017-10-30] MEDS: MINERAL OIL/PETROLAT/WATER TOPICAL CREAM 113 GM JAR TP SCH (22:32)
[2017-10-31] MEDS ORDERED: METHADONE HCL 5 MG TABLET (FOR DETOX USE ONLY) PO SCH (06:00)
[2017-10-31 06:22] VITALS: BP 114/76; PULSE 76; TEMP 97.9
== END 2017-10-31 07:10 | disposition home or self-care (01) | DRG 897 ==
LOC: YASAS 11:44 → Y6N 16:24
PROVIDERS: ADMIT Internal Medicine; ATTEND Internal Medicine
PROC: HZ2ZZZZ Detoxification Services for Substance Abuse Treatment (ICD-10-PCS; principal; 2017-10-26)
DX: F11.23 Opioid dependence with withdrawal (principal); Z68.1 Body mass index [BMI] 19.9 or less, adult; F10.230 Alcohol dependence with withdrawal, uncomplicated; F17.210 Nicotine dependence, cigarettes, uncomplicated; F19.24 Other psychoactive substance dependence with psychoactive substance-induced mood disorder; Z21 Asymptomatic human immunodeficiency virus [HIV] infection status; I10 Essential (primary) hypertension; J45.909 Unspecified asthma, uncomplicated; B18.2 Chronic viral hepatitis C; L85.3 Xerosis cutis; M20.11 Hallux valgus (acquired), right foot; R76.11 Nonspecific reaction to tuberculin skin test without active tuberculosis; R63.4 Abnormal weight loss; Z91.5 Personal history of self-harm
CPT/HCPCS: 36415; 71020-TC; 80053; 81003; 85027; 86593; 93005; 93010

== ENCOUNTER 2019-05-09 08:33 | Inpatient (IN) | payer OTHER | END 2019-05-10 11:31 | disposition left against medical advice (07) | LOC: YASAS 08:33 → Y3N 09:38 ==